=== PATIENT | male | born 1970 | race African-American/Black ===

== ENCOUNTER 2020-09-29 09:08 | Inpatient (IN) | payer MEDICAID ==
[~2020-09-29] VITALS: Ht 190.5 cm; Wt 91.2 kg
[2020-09-29] MEDS ORDERED: KETOROLAC 30MG/ML VIAL IV STA (09:20)
[2020-09-29] MEDS ORDERED: FAMOTIDINE 20MG/2ML VIAL IV STA (09:20)
[2020-09-29] MEDS ORDERED: ONDANSETRON HCL 4MG/2ML INJ IV STA (09:20)
[2020-09-29] MEDS ORDERED: SODIUM CHLORIDE 0.9% 1,000 ML IV ONE (09:30)
[2020-09-29 09:38] LABS: BASOPHILS % 0.6 % (0.0-2.0); EOSINOPHILS % 0.1 % (0.0-5.0); HEMATOCRIT. 41.2 % (42.0-52.0); MEAN CORPUSCULAR HEMOGLOBIN 34.5 pg (28.0-32.0); MEAN CORPUSCULAR VOLUME 101.2 fL (80.0-94.0); MEAN PLATELET VOLUME 10.5 fl (7.4-10.4); MONOCYTES % 7.9 % (2.0-8.0); NEUTROPHILS % 79.4 % (40.0-76.0); PLATELET 104 x1000/uL (130-400); RED BLOOD CELL COUNT 4.07 mill/uL (4.7-6.1); RED CELL DISTRIBUTION WIDTH 13.6 % (11.6-14.6)
[2020-09-29 09:43] LABS: CHLORIDE 98 mEq/L (98-107)
[2020-09-29 09:46] LABS: INR 1.1; PROTHROMBIN TIME 11.9 sec (9.6-11.0)
[2020-09-29 09:48] LABS: ETHANOL BLOOD < 10 mg/dL
[2020-09-29] MEDS ORDERED: MAGNESIUM 2 G PREMIX 50 ML IV ONE (10:45)
[2020-09-29 11:20] LABS: AMYLASE 460 IU/L (25-115)
[2020-09-29] MEDS ORDERED: ONDANSETRON HCL 4MG/2ML INJ IV PRN (16:00)
[2020-09-29] MEDS: PANTOPRAZOLE SODIUM 40 MG/VIAL IV SCH (16:00)
[2020-09-29 17:43] LABS: CLARITY URINE CLOUDY (CLEAR); COLOR URINE ORANGE (YELLOW); KETONES URINE TRACE (NEGATIVE); LEUKOCYTE ESTERASE URINE TRACE (NEGATIVE); NITRITE URINE POSITIVE (NEGATIVE); OCCULT BLOOD URINE TRACE (NEGATIVE); PROTEIN URINE 3+ (NEGATIVE); SPECIFIC GRAVITY URINE 1.035 (1.005-1.030)
[2020-09-29 18:02] LABS: *AMPHETAMINES SCREEN URINE NEGATIVE (NEGATIVE); *BARBITURATES SCREEN URINE NEGATIVE (NEGATIVE); *BENZODIAZEPINES SCREEN URINE NEGATIVE (NEGATIVE); *COCAINE SCREEN URINE NEGATIVE (NEGATIVE); METHADONE URINE SCREEN NEGATIVE (NEGATIVE); OPIATES URINE SCREEN NEGATIVE (NEGATIVE)
[2020-09-29 18:03] LABS: CANNABINOID URINE SCREEN PRESUMTIVE POSITIVE (NEGATIVE); PHENCYCLIDINE URINE SCREEN NEGATIVE (NEGATIVE)
[2020-09-29 18:16] VITALS: BP 143/104
[2020-09-29] MEDS: AMLODIPINE 5MG TABLET PO SCH (19:05)
[2020-09-29] MEDS: MORPHINE SULFATE 2 MG/ML CPJ (NOT FOR IM USE) IV PRN (20:42)
[2020-09-29] MEDS: SODIUM CHLORIDE 0.9% 1,000 ML IV SCH (20:42)
[2020-09-30] MEDS: ENOXAPARIN 100MG/ML SYR SUBCUT SCH ×3 (00:11→22:02)
[2020-09-30 06:18] LABS: CHLORIDE 103 mEq/L (98-107)
[2020-09-30 06:23] LABS: AMYLASE 216 IU/L (25-115); TOTAL IRON BINDING CAPACITY 291 ug/dL (250-450)
[2020-09-30 06:24] LABS: GAMMA GLUTAMYL TRANSPEPTIDASE 151 IU/L (11-50); PHOSPHORUS 4.2 mg/dL (2.5-4.9)
[2020-09-30 06:25] LABS: LDL CHOLESTEROL 58 mg/dL (5-100)
[2020-09-30 06:26] LABS: HDL CHOLESTEROL 51 mg/dL (40-59)
[2020-09-30 06:28] LABS: BASOPHILS % 0.4 % (0.0-2.0); EOSINOPHILS % 0.3 % (0.0-5.0); HEMOGLOBIN. 12.9 g/dL (14.0-18.0); LYMPHOCYTES % 17.5 % (20.0-50.0); MEAN CORPUSCULAR HEMOGLOBIN 34.8 pg (28.0-32.0); MEAN CORPUSCULAR VOLUME 102.8 fL (80.0-94.0); MEAN PLATELET VOLUME 11.2 fl (7.4-10.4); MONOCYTES % 10.4 % (2.0-8.0); NEUTROPHILS % 71.4 % (40.0-76.0); PLATELET 96 x1000/uL (130-400); RED CELL DISTRIBUTION WIDTH 13.4 % (11.6-14.6)
[2020-09-30 06:38] LABS: FERRITIN 451 ng/mL (22-322)
[2020-09-30 06:40] LABS: FOLIC ACID (FOLATE) SERUM >20 ng/mL ng/mL (>5.38)
[2020-09-30 06:52] LABS: VITAMIN B12 SERUM 629 pg/mL (211-911)
[2020-09-30] MEDS: SODIUM CHLORIDE 0.9% 1,000 ML IV SCH ×3 (06:53→18:43)
[2020-09-30 08:00] VITALS: BP 137/97
[2020-09-30] MEDS: AMLODIPINE 5MG TABLET PO SCH (10:04)
[2020-09-30] MEDS: PANTOPRAZOLE SODIUM 40 MG/VIAL IV SCH (10:05)
[2020-09-30 12:00] VITALS: BP 140/102
[2020-09-30 16:00] VITALS: BP 152/96
[2020-09-30] MEDS: ASCORBIC ACID 500 MG TABLET PO SCH (18:43)
[2020-09-30] MEDS: FERROUS SULFATE 325MG TABLET PO SCH (18:43)
[2020-09-30] MEDS: POLYETHYLENE GLYCOL 3350 (17GM) 1 DOSE PACK PO SCH (18:43)
[2020-09-30] MEDS: PHENYLEPH/PRAMOXIN/GLYCR/PET RECTAL CREAM 26GM PR SCH (18:44)
[2020-09-30 20:00] VITALS: BP 129/93
[2020-09-30] MEDS: MORPHINE SULFATE 2 MG/ML CPJ (NOT FOR IM USE) IV PRN (21:17)
[2020-10-01] VITALS: BP 134/98
[2020-10-01 04:00] VITALS: BP 142/72
[2020-10-01] MEDS: SODIUM CHLORIDE 0.9% 1,000 ML IV SCH ×4 (05:58→23:52)
[2020-10-01] MEDS: PHENYLEPH/PRAMOXIN/GLYCR/PET RECTAL CREAM 26GM PR SCH ×4 (06:00→23:53)
[2020-10-01 07:13] LABS: BASOPHILS % 0.5 % (0.0-2.0); EOSINOPHILS % 0.2 % (0.0-5.0); HEMATOCRIT. 37.6 % (42.0-52.0); HEMOGLOBIN. 12.9 g/dL (14.0-18.0); LYMPHOCYTES % 17.9 % (20.0-50.0); MEAN CORPUSCULAR HEMOGLOBIN 35.1 pg (28.0-32.0); MEAN CORPUSCULAR VOLUME 102.1 fL (80.0-94.0); MEAN PLATELET VOLUME 11.7 fl (7.4-10.4); MONOCYTES % 12.6 % (2.0-8.0); NEUTROPHILS % 68.8 % (40.0-76.0); PLATELET 107 x1000/uL (130-400); RED BLOOD CELL COUNT 3.68 mill/uL (4.7-6.1); RED CELL DISTRIBUTION WIDTH 13.4 % (11.6-14.6)
[2020-10-01 08:00] VITALS: BP_SYST 128; BP_SYST 133; BP_DIAS 102; BP_DIAS 74
[2020-10-01 08:01] LABS: CHLORIDE 103 mEq/L (98-107)
[2020-10-01 08:12] LABS: AMYLASE 171 IU/L (25-115)
[2020-10-01] MEDS: PANTOPRAZOLE SODIUM 40 MG/VIAL IV SCH (10:03)
[2020-10-01] MEDS: ASCORBIC ACID 500 MG TABLET PO SCH (10:04)
[2020-10-01] MEDS: POLYETHYLENE GLYCOL 3350 (17GM) 1 DOSE PACK PO SCH (10:04)
[2020-10-01] MEDS: DOCUSATE SODIUM 250MG CAPSULE PO SCH (10:04)
[2020-10-01] MEDS: FERROUS SULFATE 325MG TABLET PO SCH ×2 (10:04→17:11)
[2020-10-01] MEDS: AMLODIPINE 5MG TABLET PO SCH (10:05)
[2020-10-01] MEDS: ENOXAPARIN 100MG/ML SYR SUBCUT SCH ×2 (11:05→23:52)
[2020-10-01 12:00] VITALS: BP 130/100
[2020-10-01 16:00] VITALS: BP 119/89
[2020-10-01] MEDS: MORPHINE SULFATE 2 MG/ML CPJ (NOT FOR IM USE) IV PRN (17:00)
[2020-10-01 20:00] VITALS: BP 136/100
[2020-10-01] MEDS: SENNOSIDES/DOCUSATE SOD 8.6/50MG TABLET PO SCH (20:09)
[2020-10-02] VITALS (7 sets, daily range): BP systolic 128–181; BP diastolic 99–122
[2020-10-02] MEDS: PHENYLEPH/PRAMOXIN/GLYCR/PET RECTAL CREAM 26GM PR SCH ×2 (06:31→12:12)
[2020-10-02 06:56] LABS: BASOPHILS % 0.6 % (0.0-2.0); EOSINOPHILS % 0.1 % (0.0-5.0); HEMATOCRIT. 39.6 % (42.0-52.0); HEMOGLOBIN. 13.5 g/dL (14.0-18.0); LYMPHOCYTES % 12.1 % (20.0-50.0); MEAN CORPUSCULAR HEMOGLOBIN 35.1 pg (28.0-32.0); MEAN CORPUSCULAR VOLUME 103.3 fL (80.0-94.0); MEAN PLATELET VOLUME 11.5 fl (7.4-10.4); MONOCYTES % 10.7 % (2.0-8.0); NEUTROPHILS % 76.5 % (40.0-76.0); PLATELET 117 x1000/uL (130-400); RED BLOOD CELL COUNT 3.83 mill/uL (4.7-6.1); RED CELL DISTRIBUTION WIDTH 13.6 % (11.6-14.6)
[2020-10-02] MEDS ORDERED: POLYETHYLENE GLYCOL 3350 (17GM) 1 DOSE PACK PO SCH (09:00)
[2020-10-02 09:01] LABS: CHLORIDE 99 mEq/L (98-107)
[2020-10-02] MEDS ORDERED: IPRATROPIUM BROMIDE (0.02%) 0.5MG/2.5ML NEB HHN PRN (09:15)
[2020-10-02 09:17] LABS: AMYLASE 170 IU/L (25-115)
[2020-10-02 09:21] LABS: PHOSPHORUS 3.2 mg/dL (2.5-4.9)
[2020-10-02] MEDS: SODIUM CHLORIDE 0.9% 1,000 ML IV SCH (09:56)
[2020-10-02] MEDS: PANTOPRAZOLE SODIUM 40 MG/VIAL IV SCH (09:56)
[2020-10-02] MEDS: FERROUS SULFATE 325MG TABLET PO SCH ×2 (09:57→18:55)
[2020-10-02] MEDS: DOCUSATE SODIUM 250MG CAPSULE PO SCH (09:57)
[2020-10-02] MEDS: ENOXAPARIN 100MG/ML SYR SUBCUT SCH ×2 (09:57→23:27)
[2020-10-02] MEDS: ASCORBIC ACID 500 MG TABLET PO SCH (09:57)
[2020-10-02] MEDS: AMLODIPINE 5MG TABLET PO SCH (09:57)
[2020-10-02] MEDS ORDERED: FUROSEMIDE 40MG/4ML VIAL IVP NR (14:52)
[2020-10-02] MEDS ORDERED: CLONIDINE 0.1MG TABLET PO PRN (16:45)
[2020-10-02 17:52] LABS: BG BASE EXCESS -13.3 mmol/L (-2.0-2.0); BG CARBOXYHEMOGLOBIN 0.3 % (0.5-1.5); BG DEOXYHEMOGLOBIN 1.1 % (0.0-5.0); BG FRACTION INSPIRED OXYGEN 100; BG HCO3 ACT 12.5 mmol/L (22.0-26.0); BG METHEMOGLOBIN 0.3 % (0.0-1.5); BG OXYGEN SATURATION 98.9 % (92.0-98.5); BG OXYHEMOGLOBIN 98.3 % (94.0-97.0); BG PCO2 29.2 mmHg (35.0-45.0); BG PH 7.248 (7.350-7.450); BG PO2 163.4 mmHg (75.0-100.0); BG SAMPLE SITE RIGHT RADIAL; BG TOTAL HEMOGLOBIN 14.2 g/dL (12.0-18.0); BG TOTAL RESPIRATORY RATE 35 b/min; BG VENT MODE MASK - BIPAP
[2020-10-02] MEDS: PIPERACILLIN/TAZOBACTAM 3.375 G in DEXT 5% WATER 100 ML IV SCH ×2 (18:25→23:32)
[2020-10-02] MEDS ORDERED: SODIUM BICARBONATE 8.4% 1 MEQ/ML 50ML SYR IV NR (19:15)
[2020-10-02] MEDS: IPRATROPIUM/ALBUTEROL 0.5-3(2.5)MG/3ML NEB HHN SCH (20:08)
[2020-10-02] MEDS: MORPHINE SULFATE 2 MG/ML CPJ (NOT FOR IM USE) IV PRN (20:13)
[2020-10-02] MEDS: SENNOSIDES/DOCUSATE SOD 8.6/50MG TABLET PO SCH (20:20)
[2020-10-02] MEDS ORDERED: PIPERACILLIN/TAZOBACTAM 3.375 G/VIAL IV SCH (22:00)
[2020-10-02] MEDS ORDERED: MORPHINE SULFATE 2 MG/ML CPJ (NOT FOR IM USE) IV PRN (23:45)
[2020-10-02] MEDS ORDERED: LORAZEPAM 2MG/ML CPJ IV PRN (23:45)
[2020-10-03] MEDS: IPRATROPIUM/ALBUTEROL 0.5-3(2.5)MG/3ML NEB HHN SCH (00:25)
[2020-10-03 00:34] LABS: BG BASE EXCESS -10.6 mmol/L (-2.0-2.0); BG CARBOXYHEMOGLOBIN 0.6 % (0.5-1.5); BG DEOXYHEMOGLOBIN 6.6 % (0.0-5.0); BG FRACTION INSPIRED OXYGEN 100; BG METHEMOGLOBIN 0.4 % (0.0-1.5); BG OXYGEN SATURATION 93.3 % (92.0-98.5); BG OXYHEMOGLOBIN 92.4 % (94.0-97.0); BG PCO2 50.7 mmHg (35.0-45.0); BG PH 7.169 (7.350-7.450); BG PO2 85.4 mmHg (75.0-100.0); BG SAMPLE SITE LEFT BRACHIAL; BG TOTAL HEMOGLOBIN 14.5 g/dL (12.0-18.0); BG VENT MODE MASK - BIPAP
[2020-10-03] MEDS ORDERED: SODIUM BICARBONATE 8.4% 1 MEQ/ML 50ML SYR IV ONE ×2 (01:30→01:50)
[2020-10-03] MEDS ORDERED: EPINEPHRINE 0.1MG/ML (1:10,000) 10ML SYR ONE ×2 (01:30→01:50)
[2020-10-03] MEDS ORDERED: DEXTROSE 50% WATER 50ML SYRINGE IV ONE (01:50)
[2020-10-03 01:51] VITALS: BP 146/118
[2020-10-03] MEDS ORDERED: NOREPINEPHRINE 32 MG in DEXT 5% WATER 218 ML IV PRN (02:00)
[2020-10-03] MEDS ORDERED: SODIUM BICARBONATE 150 MEQ in DEXTROSE 5% WATER 1,000 ML IV SCH (02:00)
[2020-10-03] MEDS ORDERED: SODIUM CHLORIDE 45ML SPRAY NS PRN (02:00)
[2020-10-03 02:07] VITALS: BP 105/68
[2020-10-03 02:20] VITALS: BP 103/69
[2020-10-03 02:37] LABS: BG BASE EXCESS -21.4 mmol/L (-2.0-2.0); BG CARBOXYHEMOGLOBIN 0.2 % (0.5-1.5); BG DEOXYHEMOGLOBIN 37.5 % (0.0-5.0); BG FRACTION INSPIRED OXYGEN 100; BG HCO3 ACT 14.2 mmol/L (22.0-26.0); BG METHEMOGLOBIN 0.2 % (0.0-1.5); BG OXYGEN SATURATION 62.3 % (92.0-98.5); BG OXYHEMOGLOBIN 62.1 % (94.0-97.0); BG PH 6.822 (7.350-7.450); BG PO2 57.8 mmHg (75.0-100.0); BG SAMPLE SITE RIGHT FEMORAL; BG TOTAL HEMOGLOBIN 14.1 g/dL (12.0-18.0); BG VENT MODE RESUS BAG
[2020-10-03] MEDS ORDERED: PHENYLEPHRINE 100 MG in DEXT 5% WATER 240 ML IV PRN (03:00)
== END 2020-10-03 02:34 | disposition expired | DRG 282 ==
LOC: ER 09:08 → 6EST 10:58 → EDBEDREQ 11:07 → ENRESERV 15:48 → 5EST 10-02 16:00 → MICUNO 10-03 02:15
PROVIDERS: ADMIT Internal Medicine; ATTEND Internal Medicine
PROC: 5A09357 Assistance with Respiratory Ventilation, Less than 24 Consecutive Hours, Continuous Positive Airway Pressure (ICD-10-PCS; 2020-10-02)
PROC: 5A12012 Performance of Cardiac Output, Single, Manual (ICD-10-PCS; principal; 2020-10-03)
PROC: 0BH17EZ Insertion of Endotracheal Airway into Trachea, Via Natural or Artificial Opening (ICD-10-PCS; 2020-10-03)
PROC: 5A1935Z Respiratory Ventilation, Less than 24 Consecutive Hours (ICD-10-PCS; 2020-10-03)
PROC: 5A2204Z Restoration of Cardiac Rhythm, Single (ICD-10-PCS; 2020-10-03)
DX: K85.90 Acute pancreatitis without necrosis or infection, unspecified (principal); N39.0 Urinary tract infection, site not specified; J96.00 Acute respiratory failure, unspecified whether with hypoxia or hypercapnia; I82.411 Acute embolism and thrombosis of right femoral vein; I82.431 Acute embolism and thrombosis of right popliteal vein; I49.01 Ventricular fibrillation; E87.1 Hypo-osmolality and hyponatremia; D53.9 Nutritional anemia, unspecified; E83.42 Hypomagnesemia; D69.6 Thrombocytopenia, unspecified; E87.2 Acidosis; I46.9 Cardiac arrest, cause unspecified; K76.0 Fatty (change of) liver, not elsewhere classified; K59.00 Constipation, unspecified; F10.10 Alcohol abuse, uncomplicated; Y90.9 Presence of alcohol in blood, level not specified; F17.210 Nicotine dependence, cigarettes, uncomplicated; Z20.822 Contact with and (suspected) exposure to COVID-19; K64.9 Unspecified hemorrhoids; I10 Essential (primary) hypertension; R16.0 Hepatomegaly, not elsewhere classified; Z82.49 Family history of ischemic heart disease and other diseases of the circulatory system
CPT/HCPCS: 36415; 36600; 71045; 74176; 76705; 80048; 80053; 80061; 80076; 80305; 80320; 81003; 82140; 82150; 82248; 82375; 82607; 82728; 82746; 82805; 82962; 82977; 83540; 83550; 83615; 83735; 83880; 84100; 84484; 85025; 85379; 87426; 93005; 93970; 94640; 94660; 97161; 97166; 99285; C9113; J1650; J1885; J1940; J2060; J2270; J2405; J2543; J3475; J3490; J7030; J7060; J7070; G0480